=== PATIENT | female | born 1965 | race Caucasian/White ===

== ENCOUNTER 2017-02-25 06:08 | Day surgery (SDC) | payer BC ==
[2017-02-21 12:42] VITALS: BMI 25.4
[2017-02-25] MEDS ORDERED: MIDAZOLAM HCL 2 MG/2 ML SINGLE DOSE VIAL ONE (08:00)
[2017-02-25] MEDS ORDERED: PROPOFOL 20 ML ONE (08:00)
[2017-02-25] MEDS ORDERED: LIDOCAINE HCL 2% (20ML MULTI-DOSE VIAL) NR ONE (08:02)
[2017-02-25] MEDS ORDERED: DEXAMETHASONE SOD PHOSPHATE 4 MG/1 ML VIAL ONE (08:21)
--- NOTE | 2017-02-25 08:24 | HP ---
History & Physical Update - History History: No Change - Physical Physical: No Change - Assessment Assessment: No Change - Plan Plan: No Change
[2017-02-25] MEDS ORDERED: KETOROLAC TROMETHAMINE 30 MG/1 ML VIAL ONE (08:28)
[2017-02-25] MEDS ORDERED: ACETAMINOPHEN 325 MG TABLET (FP) PO PRN (08:28)
[2017-02-25] MEDS ORDERED: IBUPROFEN 400 MG TABLET (FP) PO PRN (08:28)
--- NOTE | 2017-02-25 09:10 | OP ---
Operative Note - Note: Operative Date: 02/25/17 Pre-Operative Diagnosis: SUbmucosal myoma. Dysmenorrhea Operation: Hysteroscopic Myomectomy. Suction DC Findings: submucosal myoma at lower uterine segment and fundus Post-Operative Diagnosis: Same as Pre-op Surgeon: Katie Knapp Anesthesia: General Estimated Blood Loss (mls): 30 Operative Report Dictated: Yes
[2017-02-25] MEDS ORDERED: PROMETHAZINE HCL 25 MG/1 ML VIAL IVPUSH PRN (09:17)
[2017-02-25] MEDS ORDERED: oxyCODONE HCL 5 MG TABLET PO PRN (09:17)
[2017-02-25] MEDS ORDERED: LACTATED RINGERS SOLUTION 1,000 ML IV SCH (09:30)
[2017-02-25 10:55] VITALS: TEMP 97.7
[2017-02-25 12:59] VITALS: BP 112/64; PULSE 63
--- NOTE | 2017-02-27 16:23 | PATH ---
Surgical Pathology Report Patient Name: ZULEIKA DONNELLY [facility]. Rec. #: [id number] /Age/Gender: 1965 (Age: 51) / F Account: [id number] Location: [facility] SURGICAL Taken: 02/25/2017 Received: 02/25/2017 Reported: 02/27/2017 Physicians: Katie Knapp M.D. Specimen(s) Received SUBMUCOSAL MYOMA Clinical History Fibroid Final Diagnosis SUBMUCOSAL MYOMA, HYSTEROSCOPIC MYOMECTOMY: FRAGMENTS OF ENDOMETRIAL POLYP. FRAGMENTS OF BENIGN SMOOTH MUSCLE WITH OVERLYING BENIGN ENDOMETRIUM COMPATIBLE WITH SUBMUCOSAL LEIOMYOMA. Electronically Signed Rolan Dsouza M.D. Gross Description Received in formalin labeled "submucosal myoma" is a 5 g, 4.0 x 2.6 x 0.4 cm aggregate of yanez-pink soft tissue fragments. The formalin is filtered and the specimen is entirely submitted in 3 cassettes. DL/02/25/2017 [place]/02/25/2017
== END 2017-02-25 12:45 | disposition home or self-care (01) ==
LOC: JASU-SURG 06:08
PROVIDERS: ATTEND Obstetrics & Gynecology
PROC: 0UDB8ZX Extraction of Endometrium, Via Natural or Artificial Opening Endoscopic, Diagnostic (ICD-10-PCS; principal; 2017-02-25 08:00)
PROC: 0UB98ZZ Excision of Uterus, Via Natural or Artificial Opening Endoscopic (ICD-10-PCS; 2017-02-25 08:00)
DX: D25.0 Submucous leiomyoma of uterus (principal); N94.6 Dysmenorrhea, unspecified
CPT/HCPCS: 84703; 88305-TC; 94760

== ENCOUNTER 2017-12-15 04:13 | Emergency (ER) | payer BC ==
[2017-12-15 05:09] VITALS: TEMP 97.9; BMI 26.2
[2017-12-15] MEDS ORDERED: KETOROLAC TROMETHAMINE 30 MG/1 ML VIAL IVPUSH ONE (05:10)
[2017-12-15] MEDS ORDERED: KETOROLAC TROMETHAMINE 30 MG/1 ML VIAL ONE (05:16)
--- NOTE | 2017-12-15 05:28 | PDOC ---
History of Present Illness - General Chief Complaint: Pain Stated Complaint: PAIN Time Seen by Provider: 12/15/17 04:50 - History of Present Illness Initial Comments: 12/15/17 05:21 CHIEF COMPLAINT: left sided pain HISTORY OF PRESENT ILLNESS: 52 yo F with hx of heart murmur presents to ED with left sided ear pain radiating to left neck "down to my side" since yesterday. Patient denies fever, chills, vomiting, and diarrhea, but reports "some chest pain." Patient also reports pain and "tingling" to left arm. Patient denies shortness of breath. Patient does report recent travel and that she returned from [place] yesterday. PAST MEDICAL HISTORY: heart murmur FAMILY HISTORY: Denies SOCIAL HISTORY: Denies tobacco, alcohol, illicit drug use. SURGICAL HISTORY: Denies ALLERGIES: No known drug allergies REVIEW OF SYSTEMS General/Constitutional: Denies fever or chills. Denies weakness, weight change. HEENT: Denies change in vision. Denies ear pain or discharge. Denies sore throat. Cardiovascular: Denies chest pain or shortness of breath. Respiratory: Denies cough, wheezing, or hemoptysis. Gastrointestinal: Denies nausea, vomiting, diarrhea or constipation. Denies rectal bleeding. Genitourinary: Denies dysuria, frequency, or change in urination. Musculoskeletal: Denies joint or muscle swelling or pain. Denies neck or back pain. Skin and breasts: Denies rash or easy bruising. Neurologic: Pain radiating from left ear down to left "side." Denies headache, vertigo, loss of consciousness, or loss of sensation. PHYSICAL EXAM General Appearance: Well-appearing, appropriately dressed. No apparent distress , no intoxication. HEENT: Postauricular TTP, no tenderness to mastoid. TM intact bilaterally. EOMI , PERRLA, normal ENT inspection, normal voice, TMs normal, pharynx normal. No conjunctival pallor. No photophobia, scleral icterus. Neck: TTP to nape of neck, pain elicited with movement. Supple. Trachea midline. No tenderness, rigidity, carotid bruit, stridor, lymphadenopathy, or thyromegaly. Respiratory/Chest: Lungs CTAB. Cardiovascular: RRR. S1, S2. Gastrointestinal/Abdominal: Normal bowel sounds. Abdomen soft, non-distended. No tenderness or rebound tenderness. No organomegaly, pulsatile mass, guarding , hernia, hepatomegaly, splenomegaly. Musculoskeletal/Extremities: Normal inspection. FROM of all extremities, normal capillary refill. Pelvis Stable. No CVA tenderness. No tenderness to extremities, pedal edema, swelling, erythema or deformity. Integumentary: Appropriate color, dry, warm. No cyanosis, erythema, jaundice or rash Neurologic: journeyman apprentice electricians II-XII intact. Fully oriented, alert. Appropriate mood/affect. Motor strength 5/5. No appreciable EOM palsy, facial droop or sensory deficit. 12/15/17 06:19 Past History - Past Medical History Allergies/Adverse Reactions: Allergies Allergy/AdvReac Type Severity Reaction Status Date / Time No Known Allergies Allergy Verified 12/15/17 04:55 Home Medications: Ambulatory Orders Multivitamin/Iron/Folic Acid [Centrum Women Tablet] 1 each PO DAILY 02/25/17 Diclofenac Sodium 50 mg PO BID #28 tablet. 12/15/17 Cardiac Disorders: Yes (heart murmur) - Suicide/Smoking/Psychosocial Hx Smoking History: Never smoked Have you smoked in the past 12 months: No Information on smoking cessation initiated: No Hx Alcohol Use: No Drug/Substance Use Hx: No Substance Use Type: None Hx Substance Use Treatment: No *Physical Exam - Vital Signs Last Vital Signs Temp Pulse Resp BP Pulse Ox 97.9 F 79 19 117/71 100 12/15/17 04:53 12/15/17 04:53 12/15/17 04:53 12/15/17 04:53 12/15/17 04:53 ED Treatment Course - LABORATORY CBC & Chemistry Diagram: 12/15/17 05:15 12/15/17 05:15 - Medications Given in the ED: ED Medications Discontinued Medications Generic Name Dose Route Start Last Admin Trade Name Freq PRN Reason Stop Dose Admin Ketorolac Tromethamine 30 mg 12/15/17 05:10 12/15/17 05:19 Toradol Injection - IVPUSH 12/15/17 05:11 30 mg ONCE ONE Administration Medical Decision Making - Medical Decision Making 12/15/17 06:15 52 yo F with hx of heart murmur presents to ED with left sided ear pain radiating to left neck "down to my side" since yesterday. Patient with TTP to left neck and post auricular region. -Toradol IV given *DC/Admit/Observation/Transfer Diagnosis at time of Disposition: Acute left-sided back pain - Discharge Dispostion Disposition: HOME Condition at time of disposition: Stable Admit: No - Prescriptions Prescriptions: Diclofenac Sodium 50 mg PO BID #28 tablet.dr - Referrals Referrals: Braulio Parada MD [Primary Care Provider] - Michael Richardson MD [Staff Physician] - Michael Lyles MD [Staff Physician] - - Patient Instructions Printed Discharge Instructions: DI for Acute Pain -- Adult Additional Instructions: Please take medications as prescribed. Follow up with neurology and orthopedics this week for further evaluation. If you develop ANY sudden weakness to one side, blurry vision, headache, slurred speech, facial droop, difficulty walking, nausea, vomiting, fever, chills, or any new or worsening symptoms, please return to the ER immediately. - Post Discharge Activity
[2017-12-15 05:40] LABS: BASO % 0.7 % (0-2.0); EOS % 3.1 % (0-4.5); LYMPH % 23.9 % (8-40); MCH 28.3 pg (25.7-33.7); MCHC 34.4 g/dl (32.0-36.0); MEAN CELL VOLUME 82.4 fl (80-96); MEAN PLT VOLUME 7.3 fl (7.5-11.1); MONO % 8.8 % (3.8-10.2); NEUT % 63.5 % (42.8-82.8); PLATELET COUNT 298 K/MM3 (134-434); RBC 4.25 M/mm3 (3.60-5.2); WHITE BLOOD COUNT 5.3 K/mm3 (4.0-10.0)
[2017-12-15 06:03] LABS: ALBUMIN 3.7 g/dl (3.4-5.0); ANION GAP 6 (8-16); BILIRUBIN,TOTAL 0.3 mg/dL (0.2-1.0); BLOOD UREA NITROGEN 11 mg/dL (7-18); CALCIUM 8.8 mg/dL (8.5-10.1); CHLORIDE 105 mmol/L (98-107); CO2 27 mmol/L (21-32); CREATININE 0.6 mg/dL (0.55-1.02); GLUCOSE,RANDOM 89 mg/dL (74-106); POTASSIUM 3.9 mmol/L (3.5-5.1); SGOT/AST 14 U/L (15-37); SGPT/ALT 18 U/L (12-78); SODIUM 138 mmol/L (136-145); TOT PROT 7.3 g/dl (6.4-8.2)
[2017-12-15 06:05] LABS: ALK PHOS 75 U/L (45-117)
[2017-12-15 06:50] VITALS: BP 102/60; PULSE 74
--- NOTE | 2017-12-15 23:49 | EKG ---
Test Reason : Blood Pressure : / mmHG Vent. Rate : 074 BPM Atrial Rate : 074 BPM P-R Int : 150 ms QRS Dur : 082 ms QT Int : 382 ms P-R-T Axes : 060 058 035 degrees QTc Int : 424 ms NORMAL SINUS RHYTHM NORMAL ECG WHEN COMPARED WITH ECG OF 02-JUL-2015 03:09, NO SIGNIFICANT CHANGE WAS FOUND Confirmed by BRITTANEY HANCOCK MD ([id number]) on 12/15/2017 11:48:49 PM Referred By: Confirmed By:BRITTANEY HANCOCK MD
== END 2017-12-15 06:51 | disposition home or self-care (01) ==
LOC: JER 04:13
PROC: 3E0333Z Introduction of Anti-inflammatory into Peripheral Vein, Percutaneous Approach (ICD-10-PCS; principal; 2017-12-15)
DX: M54.89 Other dorsalgia (principal); R01.1 Cardiac murmur, unspecified
CPT/HCPCS: 36415; 80053; 82550; 83735; 84484; 85025; 93005; 93010; 99284-25

== ENCOUNTER 2021-08-15 21:00 | Observation (INO) | payer BC ==
[2021-08-15 22:07] LABS: HEMATOCRIT 38.8 % (32.4-45.2); HEMOGLOBIN 13.2 GM/dL (10.7-15.3); MCH 28.7 pg (25.7-33.7); MEAN CELL VOLUME 84.6 fl (80-96); MEAN PLT VOLUME 7.1 fl (7.5-11.1); PLATELET COUNT 364 10^3/uL (134-434); RBC 4.59 M/mm3 (3.60-5.2); RDW 13.9 % (11.6-15.6); WHITE BLOOD COUNT 7.1 K/mm3 (4.0-10.0)
[2021-08-15 22:17] LABS: INR 0.96 (0.83-1.09); PROTHROMBIN TIME (PATIENT) 11.2 SEC (9.7-13.0)
[2021-08-15 22:27] LABS: CHLORIDE 110 mmol/L (98-107); SODIUM 145 mmol/L (136-145)
[2021-08-15 22:29] LABS: CALCIUM 9.5 mg/dL (8.5-10.1)
[2021-08-15 22:30] LABS: ANION GAP 6 MMOL/L (8-16); BLOOD UREA NITROGEN 14.7 mg/dL (7-18); CO2 28 mmol/L (21-32); GLUCOSE,RANDOM 106 mg/dL (74-106)
[2021-08-15 22:33] LABS: CREATININE 0.7 mg/dL (0.55-1.3); SGOT/AST 25 U/L (15-37); SGPT/ALT 36 U/L (13-61)
[2021-08-15 22:34] LABS: BILIRUBIN,TOTAL 0.2 mg/dL (0.2-1); TOT PROT 8.2 g/dl (6.4-8.2)
[2021-08-15 22:36] LABS: ALK PHOS 107 U/L (45-117)
[2021-08-15] MEDS ORDERED: NITROGLYCERIN SUBLINGUAL 1/150 0.4 MG TAB SL ONE (23:50)
[2021-08-15] MEDS ORDERED: PANTOPRAZOLE 40 MG TABLET PO ONE (23:51)
[2021-08-16] MEDS ORDERED: ACETAMINOPHEN 325 MG TABLET (FP) PO ONE (01:05)
[2021-08-16] MEDS ORDERED: PANTOPRAZOLE 40 MG TABLET ONE (01:12)
[2021-08-16] MEDS ORDERED: ACETAMINOPHEN 325 MG TABLET (FP) ONE (01:12)
[2021-08-16 03:43] VITALS: BMI 28.2
[2021-08-16 06:22] VITALS: PULSE 78
[2021-08-16 06:54] LABS: BASO % 0.7 % (0-2.0); HEMATOCRIT 36.7 % (32.4-45.2); HEMOGLOBIN 12.6 GM/dL (10.7-15.3); LYMPH % 32.7 % (8-40); MCH 29.1 pg (25.7-33.7); MCHC 34.4 g/dl (32.0-36.0); MEAN CELL VOLUME 84.5 fl (80-96); MEAN PLT VOLUME 7.5 fl (7.5-11.1); NEUT % 56.6 % (42.8-82.8); PLATELET COUNT 332 10^3/uL (134-434); RBC 4.34 M/mm3 (3.60-5.2); WHITE BLOOD COUNT 6.8 K/mm3 (4.0-10.0)
[2021-08-16 07:19] LABS: CALCIUM 9.1 mg/dL (8.5-10.1)
[2021-08-16 07:20] LABS: BLOOD UREA NITROGEN 16.2 mg/dL (7-18); MAGNESIUM 1.9 mg/dL (1.8-2.4)
[2021-08-16 07:23] LABS: CREATININE 0.6 mg/dL (0.55-1.3)
[2021-08-16] MEDS: ASPIRIN COATED 81 MG TABLET.EC PO SCH ×2 (11:08→15:34)
[2021-08-16 15:35] VITALS: BP 123/71; TEMP 98.1
== END 2021-08-16 15:56 | disposition home or self-care (01) ==
LOC: JER 21:00 → JERBED 23:00 → J4W 08-16 02:35
PROVIDERS: ADMIT Family Medicine; ATTEND Family Medicine
DX: R07.89 Other chest pain (principal); F99 Mental disorder, not otherwise specified
CPT/HCPCS: 36415; 71045-TC-FY; 80048; 80053; 82550; 83735; 84100; 84484; 85025; 85027; 85610; 93005; 93010; 93351; 99285-25; C9803; G0378; U0003; U0005

== ENCOUNTER 2024-04-30 16:07 | Emergency (ER) | payer BC ==
[2024-04-30 16:34] VITALS: BP 110/65; PULSE 75; RESP 19; TEMP 98.5; BMI 27.3
[2024-04-30 17:46] LABS: EPI CELLS 11 /uL (0-25.1); HYALINE CASTS 0 /uL (0-3.1); PH,URINE 6.5 (5.0-8.0); URINE APPEARANCE CLEAR; URINE BACTERIA 386 /uL (0-1359); URINE BILIRUBIN NEGATIVE (NEGATIVE); URINE COLOR YELLOW; URINE GLUCOSE (UA) NEGATIVE (NEGATIVE); URINE KETONE NEGATIVE (NEGATIVE); URINE LEUK ESTERASE 1+ (NEGATIVE); URINE NITRITE NEGATIVE (NEGATIVE); URINE PROTEIN NEGATIVE (NEGATIVE); URINE RBC 20 /uL (0-23.9); URINE UROBILINOGEN 0.2 mg/dL (0.2-1.0); URINE WBC 27 /uL (0-25.8)
[2024-04-30] MEDS ORDERED: CEPHALEXIN MONOHYDRATE 500 MG CAPSULE (UD) PO ONE (18:53)
[2024-04-30] MEDS ORDERED: ACETAMINOPHEN 325 MG TABLET (FP) PO ONE (18:59)
[2024-04-30] MEDS ORDERED: CEPHALEXIN MONOHYDRATE 500 MG CAPSULE (UD) ONE (18:59)
== END 2024-04-30 19:11 | disposition home or self-care (01) ==
LOC: JER 16:07
DX: R10.32 Left lower quadrant pain (principal); N39.0 Urinary tract infection, site not specified; R31.9 Hematuria, unspecified
CPT/HCPCS: 74176-TC; 81003; 87086; 99284-25